=== PATIENT | female | born 1975 | race Caucasian/White ===

== ENCOUNTER 2017-03-31 10:21 | Emergency (ER) | payer OTHER ==
--- NOTE | 2017-04-08 14:40 | ER ---
ADMIT: 03/31/2017 RM/LOC: ER [facility] MR#: [id number] [id number] JENNIFER SANTILLAN [address] [place] [address] Emergency Room Report SEX: F AGE: 41 : 1975 DATE: 03/31/2017 ADDENDUM: This patient comes to the ER because she is having pain in her left back and left low abdomen. She has a history of having problems with her left kidney. She states she had a really bad kidney infection and then had a stone in her kidney and then was told that she had narrowing in the vessel in her kidney. She has had stents placed in her kidney, was told that she needed surgery but was unable to afford at this time. On physical exam, her pain is in her flank and her left low quadrant. She feels like this may be a kidney stone. IV of normal saline was started. She was given a liter of bolus, Toradol, Zofran, and morphine. Then she was given Phenergan 25 mg IM. Her CBC and CMP were normal. 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 The radiologist felt it was probably not functioning at all and he also noticed several large, left ovarian cysts which were most likely causing her abdominal pain. I did let the patient know about the atrophic left kidney. I wrote a prescription for Reglan and Rickreall and she is to follow up with Dr. Milan this week to discuss the atrophic kidney. Please see my T sheet. WALE Ruiz / Yordy Schumacher MD / modl JOB #: [id number] CC: Yordy Schumacher MD, Attending Physician
== END 2017-03-31 15:00 | disposition home or self-care (01) ==
LOC: ER 10:21
DX: N39.0 Urinary tract infection, site not specified (principal); J45.909 Unspecified asthma, uncomplicated; N83.202 Unspecified ovarian cyst, left side; F90.9 Attention-deficit hyperactivity disorder, unspecified type; F41.9 Anxiety disorder, unspecified; Z87.442 Personal history of urinary calculi; Z79.899 Other long term (current) drug therapy

== ENCOUNTER → 2017-04-24 | Outpatient (CLI) | payer OTHER | END | disposition home or self-care (01) | LOC: RAD.S 14:33 | DX: R10.2 Pelvic and perineal pain (principal); N83.01 Follicular cyst of right ovary; R93.8 Abnormal findings on diagnostic imaging of other specified body structures ==

== ENCOUNTER → 2017-05-08 | Outpatient (CLI) | payer OTHER | END | disposition home or self-care (01) | LOC: RAD.S 09:49 | DX: R10.9 Unspecified abdominal pain (principal); N26.1 Atrophy of kidney (terminal); N28.9 Disorder of kidney and ureter, unspecified ==